=== PATIENT | male | born 1950 | race Two or more races ===

== ENCOUNTER → 2019-08-28 | Outpatient (CLI) | payer MEDICARE ==
[~2019-08-28] VITALS: Ht 188 cm; Wt 68.0 kg
== END | disposition home or self-care (01) ==
LOC: ECT 11:23
DX: F33.2 Major depressive disorder, recurrent severe without psychotic features (principal); F41.9 Anxiety disorder, unspecified; G20 Parkinson's disease; E78.5 Hyperlipidemia, unspecified; Z86.718 Personal history of other venous thrombosis and embolism; Z86.711 Personal history of pulmonary embolism; K21.9 Gastro-esophageal reflux disease without esophagitis; I70.0 Atherosclerosis of aorta; M81.0 Age-related osteoporosis without current pathological fracture; Z91.5 Personal history of self-harm; Z79.899 Other long term (current) drug therapy

== ENCOUNTER 2019-09-01 06:05 | Outpatient (RCR) | payer MEDICARE ==
[~2019-09-01] VITALS: Ht 188 cm; Wt 68.0 kg
[2019-09-01] MEDS ORDERED: Ketorolac 60mg Inj IM ONE (06:06)
[2019-09-01] MEDS ORDERED: Succinylcholine 20mg/ml 10ml vial ONE ×2 (06:06)
[2019-09-01] MEDS ORDERED: NS 500ML ONE ×2 (06:06)
[2019-09-01] MEDS ORDERED: Methohexital Sodium Syr 100mg/10ml IVP ONE ×2 (06:06)
[2019-09-01] MEDS ORDERED: Ketorolac 30mg Inj ONE (06:06)
[2019-09-01 09:01] VITALS: BP 111/51
[2019-09-01 09:15] VITALS: BP 116/38
[2019-09-01 09:20] VITALS: BP 116/38
[2019-09-01 09:25] VITALS: BP 126/51
[2019-09-01 09:30] VITALS: BP 123/42
[2019-09-01 16:21] VITALS: BP 111/51
[2019-09-04 09:05] VITALS: BP 107/56
[2019-09-04 09:17] VITALS: BP 127/58
[2019-09-04 09:22] VITALS: BP 119/49
[2019-09-04 09:27] VITALS: BP 117/43
[2019-09-04 09:32] VITALS: BP 121/46
[2019-09-06] MEDS ORDERED: NS 500ML ONE (06:00)
[2019-09-06] MEDS ORDERED: Methohexital Sodium Syr 100mg/10ml IVP ONE (06:00)
[2019-09-06] MEDS ORDERED: Succinylcholine 20mg/ml 10ml vial ONE (06:00)
[2019-09-06] MEDS ORDERED: Ketorolac 30mg Inj ONE (06:00)
[2019-09-06 08:27] VITALS: BP 119/51
[2019-09-06 08:41] VITALS: BP 125/47
[2019-09-06 08:46] VITALS: BP 126/48
[2019-09-06 08:51] VITALS: BP 123/44
[2019-09-06 08:56] VITALS: BP 119/47
[2019-09-08] MEDS ORDERED: Methohexital Sodium Syr 100mg/10ml IVP ONE (06:00)
[2019-09-08] MEDS ORDERED: NS 500ML ONE (06:00)
[2019-09-08] MEDS ORDERED: Ketorolac 30mg Inj ONE (06:00)
[2019-09-08] MEDS ORDERED: Succinylcholine 20mg/ml 10ml vial ONE (06:00)
[2019-09-08 08:24] VITALS: BP 114/51
[2019-09-08 08:59] VITALS: BP 142/46
[2019-09-08 09:04] VITALS: BP 125/43
[2019-09-08 09:09] VITALS: BP 134/44
[2019-09-08 09:14] VITALS: BP 129/50
[2019-09-11] MEDS ORDERED: Methohexital Sodium Syr 100mg/10ml IVP ONE (06:00)
[2019-09-11] MEDS ORDERED: NS 500ML ONE (06:00)
[2019-09-11] MEDS ORDERED: Succinylcholine 20mg/ml 10ml vial ONE (06:00)
[2019-09-11] MEDS ORDERED: Ketorolac 30mg Inj ONE (06:00)
[2019-09-11 09:33] VITALS: BP 112/57
[2019-09-11] MEDS ORDERED: Lidocaine 2% 100mg/5ml Carp IV PRN (09:54)
[2019-09-11] MEDS ORDERED: Atropine Sulfate 0.4mg/ml inj IVP PRN (09:54)
[2019-09-11 09:55] VITALS: BP 132/57
[2019-09-11 10:00] VITALS: BP 124/52
[2019-09-11 10:05] VITALS: BP 126/52
[2019-09-11 10:10] VITALS: BP 122/57
[2019-09-13] MEDS ORDERED: Methohexital Sodium Syr 100mg/10ml IVP ONE (06:00)
[2019-09-13] MEDS ORDERED: NS 500ML ONE (06:00)
[2019-09-13] MEDS ORDERED: Succinylcholine 20mg/ml 10ml vial ONE (06:00)
[2019-09-13] MEDS ORDERED: Ketorolac 30mg Inj ONE (06:00)
[2019-09-13 09:55] VITALS: BP 117/52
[2019-09-13] MEDS ORDERED: Lidocaine 2% 100mg/5ml Carp IV PRN (10:19)
[2019-09-13] MEDS ORDERED: Atropine Sulfate 0.4mg/ml inj IVP PRN (10:19)
[2019-09-13 10:20] VITALS: BP 130/60
[2019-09-13 10:25] VITALS: BP 149/114
[2019-09-13 10:30] VITALS: BP 117/42
[2019-09-13 10:35] VITALS: BP 110/47
[2019-09-15] MEDS ORDERED: Methohexital Sodium Syr 100mg/10ml IVP ONE (06:00)
[2019-09-15] MEDS ORDERED: Ketorolac 30mg Inj ONE (06:00)
[2019-09-15] MEDS ORDERED: Succinylcholine 20mg/ml 10ml vial ONE (06:00)
[2019-09-15] MEDS ORDERED: NS 500ML ONE (06:00)
[2019-09-15 08:47] VITALS: BP 120/60
[2019-09-15 09:00] VITALS: BP 136/62
[2019-09-15 09:05] VITALS: BP 133/56
[2019-09-15 09:10] VITALS: BP 134/54
[2019-09-15 09:15] VITALS: BP 121/57
[2019-09-18] MEDS ORDERED: NS 500ML ONE (09:00)
[2019-09-18] MEDS ORDERED: Succinylcholine 20mg/ml 10ml vial ONE (09:00)
[2019-09-18] MEDS ORDERED: Methohexital Sodium Syr 100mg/10ml IVP ONE (09:00)
[2019-09-18] MEDS ORDERED: Ketorolac 30mg Inj ONE (09:00)
[2019-09-18 09:53] VITALS: BP 115/58
[2019-09-18] MEDS ORDERED: Lidocaine 2% 100mg/5ml Carp IV PRN (10:09)
[2019-09-18] MEDS ORDERED: Atropine Sulfate 0.4mg/ml inj IVP PRN (10:09)
[2019-09-18 10:10] VITALS: BP 139/51
[2019-09-18 10:15] VITALS: BP 131/43
[2019-09-18 10:20] VITALS: BP 130/48
[2019-09-18 10:25] VITALS: BP 126/45
== END 2019-09-19 | disposition home or self-care (01) ==
LOC: ECT 06:05
DX: F33.2 Major depressive disorder, recurrent severe without psychotic features (principal); G20 Parkinson's disease; E78.5 Hyperlipidemia, unspecified; N40.0 Benign prostatic hyperplasia without lower urinary tract symptoms; Z86.718 Personal history of other venous thrombosis and embolism; Z86.711 Personal history of pulmonary embolism; K21.9 Gastro-esophageal reflux disease without esophagitis; K44.9 Diaphragmatic hernia without obstruction or gangrene; I70.0 Atherosclerosis of aorta; R13.10 Dysphagia, unspecified; H40.059 Ocular hypertension, unspecified eye; M81.0 Age-related osteoporosis without current pathological fracture
CPT/HCPCS: 90870; J0330; J1885; J2405; J7040

== ENCOUNTER 2019-09-20 06:59 | Outpatient (RCR) | payer MEDICARE ==
[~2019-09-20] VITALS: Ht 188 cm; Wt 68.0 kg
[2019-09-20] MEDS ORDERED: Methohexital Sodium Syr 100mg/10ml IVP ONE (07:00)
[2019-09-20] MEDS ORDERED: NS 500ML ONE (07:00)
[2019-09-20] MEDS ORDERED: Ketorolac 30mg Inj ONE (07:00)
[2019-09-20] MEDS ORDERED: Succinylcholine 20mg/ml 10ml vial ONE (07:00)
[2019-09-20 08:27] VITALS: BP 114/54
[2019-09-20 08:40] VITALS: BP 135/54
[2019-09-20 08:45] VITALS: BP 123/50
[2019-09-20 09:00] VITALS: BP 123/47
[2019-09-20 09:05] VITALS: BP 123/42
[2019-09-27] MEDS ORDERED: Methohexital Sodium Syr 100mg/10ml IVP ONE (06:00)
[2019-09-27] MEDS ORDERED: Ketorolac 30mg Inj ONE (06:00)
[2019-09-27] MEDS ORDERED: NS 500ML ONE (06:00)
[2019-09-27] MEDS ORDERED: Succinylcholine 20mg/ml 10ml vial ONE (06:00)
[2019-09-27 09:22] VITALS: BP 144/63
[2019-09-27 09:36] VITALS: BP 140/60
[2019-09-27 09:41] VITALS: BP 139/59
[2019-09-27 09:46] VITALS: BP 131/57
[2019-09-27 09:51] VITALS: BP 127/52
[2019-09-29] MEDS ORDERED: NS 500ML ONE (06:00)
[2019-09-29] MEDS ORDERED: Ketorolac 30mg Inj ONE (06:00)
[2019-09-29] MEDS ORDERED: Succinylcholine 20mg/ml 10ml vial ONE (06:00)
[2019-09-29] MEDS ORDERED: Methohexital Sodium Syr 100mg/10ml IVP ONE (06:00)
[2019-09-29 09:46] VITALS: BP 115/48
[2019-09-29 09:58] VITALS: BP 137/48
[2019-09-29 10:03] VITALS: BP 139/42
[2019-09-29 10:08] VITALS: BP 117/43
[2019-09-29 10:13] VITALS: BP 109/42
[2019-10-02] MEDS ORDERED: Ketorolac 30mg Inj ONE (07:00)
[2019-10-02] MEDS ORDERED: Methohexital Sodium Syr 100mg/10ml IVP ONE (07:00)
[2019-10-02] MEDS ORDERED: NS 500ML ONE (07:00)
[2019-10-02] MEDS ORDERED: Succinylcholine 20mg/ml 10ml vial ONE (07:00)
[2019-10-02 10:30] VITALS: BP 115/59
[2019-10-02] MEDS ORDERED: Atropine Sulfate 0.4mg/ml inj IVP PRN (10:49)
[2019-10-02] MEDS ORDERED: Lidocaine 2% 100mg/5ml Carp IV PRN (10:49)
[2019-10-02 10:50] VITALS: BP 129/51
[2019-10-02 10:55] VITALS: BP 121/44
[2019-10-02 11:00] VITALS: BP 108/46
[2019-10-02 11:05] VITALS: BP 107/45
[2019-10-06] MEDS ORDERED: NS 500ML ONE (08:00)
[2019-10-06] MEDS ORDERED: Methohexital Sodium Syr 100mg/10ml IVP ONE (08:00)
[2019-10-06] MEDS ORDERED: Succinylcholine 20mg/ml 10ml vial ONE (08:00)
[2019-10-06] MEDS ORDERED: Ketorolac 30mg Inj ONE (08:00)
[2019-10-06 09:44] VITALS: BP 126/63
[2019-10-06 09:59] VITALS: BP 153/68
[2019-10-06 10:04] VITALS: BP 124/62
[2019-10-06 10:09] VITALS: BP 128/60
[2019-10-06 10:14] VITALS: BP 102/47
[2019-10-11] MEDS ORDERED: Ketorolac 30mg Inj ONE (07:00)
[2019-10-11] MEDS ORDERED: NS 500ML ONE (07:00)
[2019-10-11] MEDS ORDERED: Succinylcholine 20mg/ml 10ml vial ONE (07:00)
[2019-10-11] MEDS ORDERED: Methohexital Sodium Syr 100mg/10ml IVP ONE (07:00)
[2019-10-11 10:13] VITALS: BP 104/60
[2019-10-11] MEDS ORDERED: Atropine Sulfate 0.4mg/ml inj IVP PRN (10:34)
[2019-10-11] MEDS ORDERED: Lidocaine 2% 100mg/5ml Carp IV PRN (10:34)
[2019-10-11 10:35] VITALS: BP 131/55
[2019-10-11 10:40] VITALS: BP 138/60
[2019-10-11 10:45] VITALS: BP 126/56
[2019-10-11 10:50] VITALS: BP 122/52
[2019-10-18] MEDS ORDERED: Succinylcholine 20mg/ml 10ml vial ONE (06:00)
[2019-10-18] MEDS ORDERED: Ketorolac 30mg Inj ONE (06:00)
[2019-10-18] MEDS ORDERED: NS 500ML ONE (06:00)
[2019-10-18] MEDS ORDERED: Methohexital Sodium Syr 100mg/10ml IVP ONE (06:00)
[2019-10-18 11:01] VITALS: BP 110/52
[2019-10-18 11:15] VITALS: BP 134/54
[2019-10-18 11:20] VITALS: BP 112/59
[2019-10-18 11:25] VITALS: BP 120/47
[2019-10-18 11:30] VITALS: BP 115/49
[2019-10-18 11:35] VITALS: BP 115/49
== END 2019-10-20 | disposition home or self-care (01) ==
LOC: ECT 06:59
DX: F33.2 Major depressive disorder, recurrent severe without psychotic features (principal)
CPT/HCPCS: 90870; J0330; J1885; J2405; J7040